=== PATIENT | female | born 1980 | race Hispanic/Latino ===

== ENCOUNTER 2022-09-16 18:00 | Inpatient (IN) | payer MEDICAID, OTHER ==
[2022-09-17] MEDS: Lactated Ringer's 1,000 ML IV SCH ×2 (04:15→21:27)
[2022-09-17] MEDS ORDERED: Lidocaine 1% (PF) 30 ML VIAL SC PRN (04:24)
[2022-09-17] MEDS ORDERED: Acetaminophen 500 MG TAB PO PRN (04:24)
[2022-09-17] MEDS ORDERED: Ondansetron PF 4 MG/2 ML Vial IVP PRN ×2 (04:24→20:26)
[2022-09-17] MEDS ORDERED: hydrALAZINE 20 MG/ML VIAL SLOW IVP PRN ×2 (04:24→20:26)
[2022-09-17] MEDS ORDERED: Promethazine HCl 25 MG/ML VIAL IM PRN (04:24)
[2022-09-17] MEDS ORDERED: Ibuprofen 800 MG TAB PO PRN (04:26)
[2022-09-17] MEDS ORDERED: Misoprostol 200 MCG TAB PR PRN (04:26)
[2022-09-17] MEDS ORDERED: Methylergonovine 0.2 MG/ML VIAL IM PRN ×2 (04:26→20:26)
[2022-09-17] MEDS ORDERED: Carboprost 250 MCG/ML AMP IM PRN (04:26)
[2022-09-17] MEDS ORDERED: Diphenoxylate HCl/Atropine Tablet PO PRN (04:26)
[2022-09-17] MEDS ORDERED: NS w/ Oxytocin 30 units 500 ML IV SCH ×3 (04:30→20:30)
[2022-09-17 04:55] VITALS: BMI 31.4
[2022-09-17] MEDS ORDERED: Penicillin G Potassium 5 MILL.UNITS in Sodium Chloride 0.9% 100 ML IVPB SCH (05:00)
[2022-09-17] MEDS: Misoprostol 100 MCG TAB VAG SCH ×4 (05:45→21:27)
[2022-09-17 05:58] LABS: Hemoglobin 11.5 g/dL (12.0-15.5); Mean Corpuscular Volume 81.9 fl (81.6-98.3); Mean Platelet Volume 10.6 fl (7.4-10.4); Platelet Count 230 10x3/uL (150-450); RBC Distribution Width 14.8 % (11.5-14.5); Red Blood Cell (RBC) Count 4.26 10x6/uL (3.90-5.03); White Blood Cell (WBC) Count 10.1 10x3/uL (3.5-10.5)
[2022-09-17 06:17] LABS: SARS-CoV-2 NAA Rapid Test Not Detected (NotDetected)
[2022-09-17 06:23] LABS: Syphilis Antibody Nonreactive (Nonreactive); Syphilis Antibody Index 0.06 S/CO (<1.00 Non-Reactive)
[2022-09-17 06:24] LABS: HBSAg Index 0.13 S/CO (0-0.99); Hep B Surf Ag Non-Reactive S/CO (NonReactive)
[2022-09-17 07:54] LABS: Glucose 105 mg/dL (70-105)
[2022-09-17] MEDS: Penicillin G 2.5 MILL.units 2.5 MILL.UNITS in Premix Bag 1 BAG IVPB SCH ×4 (09:55→21:28)
[2022-09-17] MEDS ORDERED: Butorphanol Tartrate 1 MG/ML VIAL ONE (14:05)
[2022-09-17] MEDS ORDERED: Boostrix 0.5 ML (Tdap) VIAL (>/=7 yrs of age) IM ONE (20:26)
[2022-09-17] MEDS ORDERED: Misoprostol 200 MCG TAB VAG PRN (20:26)
[2022-09-17] MEDS ORDERED: Bisacodyl 10 MG SUPP PR PRN (20:26)
[2022-09-17] MEDS ORDERED: Milk Of Magnesia 30 ML UDCUP PO PRN (20:26)
[2022-09-17] MEDS ORDERED: diphenhydrAMINE 25 MG CAP PO PRN (20:26)
[2022-09-17] MEDS ORDERED: Lanolin Ointment 7 GM TUBE TOP PRN (20:26)
[2022-09-17] MEDS ORDERED: Dextrose 50% Abboject 50 ML SYRINGE SLOW IVP PRN (20:35)
[2022-09-17] MEDS ORDERED: HumaLOG 300 UNITS/3 ML VIAL SC PRN ×2 (20:35)
[2022-09-17] MEDS ORDERED: Dextrose 5% in Water 1,000 ML IV PRN (20:35)
[2022-09-17] MEDS ORDERED: Insulin Regular 300 UNITS/3 ML VIAL ONE (22:21)
[2022-09-17] MEDS: Ibuprofen 800 MG TAB PO SCH (23:22)
[2022-09-17] MEDS: Docusate 100 MG CAP PO SCH (23:23)
[2022-09-18] MEDS: Ibuprofen 800 MG TAB PO SCH ×3 (06:03→21:46)
[2022-09-18] MEDS: Ferrous Sulfate 325 MG TAB PO SCH ×2 (09:48→16:53)
[2022-09-18] MEDS: Docusate 100 MG CAP PO SCH ×2 (09:49→21:46)
[2022-09-18] MEDS: Prenatal Vitamin 1 TAB PO SCH (09:49)
[2022-09-19] MEDS: Ibuprofen 800 MG TAB PO SCH (05:37)
[2022-09-19] MEDS: Ferrous Sulfate 325 MG TAB PO SCH (07:14)
[2022-09-19] MEDS ORDERED: metFORMIN 500 MG TAB PO SCH (08:00)
[2022-09-19] MEDS: Prenatal Vitamin 1 TAB PO SCH (08:37)
[2022-09-19] MEDS: Docusate 100 MG CAP PO SCH (08:37)
[2022-09-19 09:29] VITALS: BP 113/66; TEMP 97.7
== END 2022-09-19 13:47 | disposition home or self-care (01) | DRG 807 ==
LOC: CSHLD 09-17 00:49 → CSHPED 09-17 22:10
PROVIDERS: ADMIT Family Medicine; ATTEND Family Medicine
PROC: 10E0XZZ Delivery of Products of Conception, External Approach (ICD-10-PCS; principal; 2022-09-17)
PROC: 3E0P7VZ Introduction of Hormone into Female Reproductive, Via Natural or Artificial Opening (ICD-10-PCS; 2022-09-17)
DX: O24.12 Pre-existing type 2 diabetes mellitus, in childbirth (principal); Z37.0 Single live birth; E11.9 Type 2 diabetes mellitus without complications; Z3A.38 38 weeks gestation of pregnancy; O99.824 Streptococcus B carrier state complicating childbirth; Z79.84 Long term (current) use of oral hypoglycemic drugs; D64.9 Anemia, unspecified; O99.02 Anemia complicating childbirth; O70.1 Second degree perineal laceration during delivery; Z20.822 Contact with and (suspected) exposure to COVID-19
CPT/HCPCS: 36416; 72170; 82947; 85027; 86780; 86850; 86900; 86901; 87340; J0595; J1815; J2540; J3490; J7120; U0002